=== PATIENT | female | born 1970 | race Caucasian/White ===

== ENCOUNTER → 2016-09-20 | Outpatient (CLI) | payer OTHER | LOC: BMCIMAGING 09:57 | DX: Z12.31 Encounter for screening mammogram for malignant neoplasm of breast (principal) | CPT/HCPCS: G0202 ==

== ENCOUNTER → 2018-09-02 | Day surgery (SDC) | payer OTHER ==
[~2018-09-02] MED LIST: ASPIRIN EC 325 MG TAB PO ONE; DIAZEPAM 5 MG TAB PO ONE; FAMOTIDINE 20 MG TAB PO ONE; HEPARIN 10,000 UNIT/10 ML MDV (1,000 UNIT/ML) ONE; IOPAMIDOL (ISOVUE-370) 150 ML BTL IV ONE; LIDOCAINE 1% 300 MG/30 ML SDV ONE; MIDAZOLAM 2 MG/2 ML VIAL ONE; NS 1,000 ML IV ONE; VERAPAMIL 5 MG/2 ML VIAL ONE; diphenhydrAMINE 25 MG CAP PO ONE; fentaNYL 100 MCG/2 ML INJ ONE
[2018-09-02 07:14] LABS: PLATELET COUNT 233 10^3/uL (150-400)
[2018-09-02 07:23] LABS: INR 0.98 (0.83-1.16); PROTIME(PATIENT) 12.6 SEC (12.0-15.0)
--- NOTE | 2018-09-02 07:56 | PDPROPOC ---
Sedation Plan of Care Sedation Plan of Care: vital signs stable, mental status noted, patient educated of risks, benefits, alternatives, patient can tolerate sedation ASA Classification: ASA 2 Planned drugs: fentanyl, midazolam Mallampati Score: Class 1 Mallampati Reference Image: Patient passed 3-3-2 rule?: Yes
--- NOTE | 2018-09-02 08:00 | PDGENHP ---
History & Physical Chief Complaint: chest pain History of Present Illness: 48 yo female, hx of ill efined SVT and several months of exertional chest pain here for cardia cath after abnormal stress echo. Pain began after trauma. No resting pain. No PND, orthopnea. No diaphoreisis or nausea. Last episode in the past week. Pertinent Past, Social, Family History: see attached evaluation. Relevant Physical Exam: 89, 115/68. WNWD female. No distress. No jVP. chest clear. cor rrr. radial pulses +2 =. femoral pulses +2 =. alert. no facial droop. Cardiorespiratory Assessment: Abnormal stress echo with long standing exertional pain for diagnostic cath today. Risk and benefits werwe discussed with her and her mother. Potential treatments including medicine PCI and surgery briefly discussed.
--- NOTE | 2018-09-02 08:28 | PDDXCAT ---
Diagnostic Cath Note - . Date: 09/02/18 Supervisor Prepress: Shaun Indication: Class I/II angina, intolerance to med therapy or failure to respond High-risk criteria on non-invasive testing: stress echocardiographic evidence of extensive ischemia - Procedure Access: right wrist Procedure: left heart catheterization, coronary angiography, left ventriculogram - Materials Left Heart Cath size: 4F Left Heart Cath materials: standard multipack (JL4, JR4, pigtail) - Findings-Left Heart Catheterization LM: normal LAD: normal LCX: normal RCA: dominant: normal EDP: 12 mmhg LVEF: 65 Wall motion: normal Complications: none Estimated blood loss: <50ml Closure method: TR Band Assessment: normal cors. normal left ventricular function Plan: Primary prevention. Continue monitoring for documentation of arrhythmia.
--- NOTE | 2018-09-02 11:21 | CPEKG ---
Test Reason : OPEN Blood Pressure : / mmHG Vent. Rate : 066 BPM Atrial Rate : 063 BPM P-R Int : 155 ms QRS Dur : 088 ms QT Int : 437 ms P-R-T Axes : 066 023 054 degrees QTc Int : 458 ms Sinus rhythm Confirmed by Tha Dunn ([id number]) on 09/02/2018 11:21:25 AM Referred By: Tha Dunn Confirmed By:Tha Dunn
== END | disposition home or self-care (01) ==
LOC: FCATH 06:31 → EEVIPCON 06:31
PROVIDERS: ATTEND Internal Medicine Interventional Cardiology
PROC: B2111ZZ Fluoroscopy of Multiple Coronary Arteries using Low Osmolar Contrast (ICD-10-PCS; principal; 2018-09-02)
PROC: B2151ZZ Fluoroscopy of Left Heart using Low Osmolar Contrast (ICD-10-PCS; principal; 2018-09-02)
PROC: 4A023N7 Measurement of Cardiac Sampling and Pressure, Left Heart, Percutaneous Approach (ICD-10-PCS; principal; 2018-09-02)
DX: I20.9 Angina pectoris, unspecified (principal)
CPT/HCPCS: 93005; 93458; C1769; J1644; J2250; J3010; Q9967